=== PATIENT | female | born 1975 | race Caucasian/White ===

== ENCOUNTER → 2018-07-14 | Outpatient (CLI) | payer BC, OTHER ==
--- NOTE | 2018-07-15 11:21 | Diagnostic Imaging Report ---
INDICATION: Routine screening. COMPARISON: 01/30/2016 and 08/21/2012. TECHNIQUE: 2D and 3D bilateral screening mammography was performed with CAD. FINDINGS: Both breasts are heterogeneously dense, limiting the sensitivity of mammography. Innumerable microcalcifications are identified bilaterally. These may represent milk of calcium. No mass is identified. No malignant appearing microcalcifications are seen. The axillae are unremarkable. IMPRESSION: No mammographic features suspicious for malignancy are identified. ACR BI-RADS Category 2: Benign findings. Result letter will be mailed to the patient. Note: At least 10% of breast cancer is not imaged by mammography. Dictated by: Dictated on workstation # [id number]
== END ==
LOC: RAD 15:43
PROVIDERS: ATTEND Internal Medicine
DX: Z12.31 Encounter for screening mammogram for malignant neoplasm of breast (principal)
CPT/HCPCS: 77067

== ENCOUNTER → 2019-06-11 | Outpatient (CLI) | payer BC ==
--- NOTE | 2019-06-11 10:51 | Diagnostic Imaging Report ---
INDICATION: Pain and swelling to the right foot. Time of exam 10:43 AM The metatarsals appear to be intact. Phalanges are intact. Midfoot and hindfoot are unremarkable apart from a small plantar calcaneal spur. No fractures are seen. IMPRESSION: No acute bony abnormality is detected. Dictated by: Dictated on workstation # [id number]
--- NOTE | 2019-06-11 10:53 | Diagnostic Imaging Report ---
INDICATION: Pain and swelling to lateral right ankle. FINDINGS: 3 views. There are no fractures or dislocations. The joint surfaces are smooth. Joint spaces well-maintained. No soft tissue swelling. IMPRESSION: Normal right ankle. Dictated by: Dictated on workstation # [id number]
== END ==
LOC: RAD 10:25
PROVIDERS: ATTEND Internal Medicine
DX: M79.671 Pain in right foot (principal); M25.571 Pain in right ankle and joints of right foot
CPT/HCPCS: 73610; 73630

== ENCOUNTER 2019-08-26 08:07 | Outpatient (RCR) | payer BC | END 2019-08-26 10:19 | disposition home or self-care (01) | PROVIDERS: ATTEND Podiatrist | DX: S93.491A Sprain of other ligament of right ankle, initial encounter (principal); X50.1XXA Overexertion from prolonged static or awkward postures, initial encounter ==

== ENCOUNTER → 2020-11-09 | Outpatient (CLI) | payer BC ==
--- NOTE | 2020-11-09 17:04 | Diagnostic Imaging Report ---
INDICATION: Cough. EXAMINATION: PA and lateral views were obtained. FINDINGS: The heart size, mediastinal configuration, and pulmonary vascularity are within normal limits. There is no pleural effusion, pneumothorax or pneumonia. The osseous structures are unremarkable. IMPRESSION: No acute cardiopulmonary abnormality. Dictated by: Dictated on workstation # [id number]
== END ==
LOC: RAD 15:03
PROVIDERS: ATTEND Internal Medicine
DX: R05 Cough (principal)
CPT/HCPCS: 71046

== ENCOUNTER → 2020-11-16 | Outpatient (CLI) | payer BC ==
[~2020-11-16] MED LIST: RT-ALBUTEROL SULF 2.5 MG/3 ML PRE-MIX VIAL INH ONE
== END ==
LOC: RT 08:00
PROVIDERS: ATTEND Internal Medicine
DX: R06.00 Dyspnea, unspecified (principal)
CPT/HCPCS: 94060; 94726; 94729

== ENCOUNTER → 2021-01-12 | Outpatient (CLI) | payer BC ==
--- NOTE | 2021-01-12 16:05 | Diagnostic Imaging Report ---
INDICATION: Routine screening. COMPARISON is made with prior mammograms from 07/14/2018 and 01/30/2016. 2-D and 3-D bilateral screening mammography was performed with CAD. Both breasts are heterogeneously dense, limiting the sensitivity of mammography. Innumerable calcifications throughout both breasts are again noted, limiting evaluation. No discrete mass is identified. Axillae are unremarkable. IMPRESSION: BI-RADS Category 2 No mammographic features suspicious for malignancy are identified. ACR BI-RADS Category 2: Benign findings. Result letter will be mailed to the patient. Note: At least 10% of breast cancer is not imaged by mammography. Dictated by: Dictated on workstation # [id number]
== END ==
LOC: RAD 15:30
PROVIDERS: ATTEND Internal Medicine
DX: Z12.31 Encounter for screening mammogram for malignant neoplasm of breast (principal)
CPT/HCPCS: 77063; 77067

== ENCOUNTER → 2021-06-07 | Outpatient (CLI) | payer BC ==
--- NOTE | 2021-06-07 08:36 | Diagnostic Imaging Report ---
PROCEDURE: CT head without contrast. TECHNIQUE: Multiple contiguous axial images were obtained through the brain without the use of intravenous contrast. Auto Exposure Controls were utilized during the CT exam to meet ALARA standards for radiation dose reduction. INDICATION: Syncope, collapse, headache COMPARISON: None available FINDINGS: No intracranial hemorrhage. No intracranial mass, mass effect, midline shift, herniation, hydrocephalus, or extra-axial fluid collection. No CT evidence of an acute ischemic infarction. The orbits are unremarkable. The paranasal sinuses are clear. The calvarium and extracalvarial soft tissues are unremarkable. IMPRESSION: No acute intracranial abnormality. Dictated by: Dictated on workstation # [id number]
== END ==
LOC: CARD 07:29
PROVIDERS: ATTEND Internal Medicine
DX: R55 Syncope and collapse (principal); R51.9 Headache, unspecified
CPT/HCPCS: 70450; 93005

== ENCOUNTER → 2022-02-20 | Outpatient (CLI) | payer BC ==
--- NOTE | 2022-02-20 09:21 | Diagnostic Imaging Report ---
Indication: Routine screening. Comparison is made with prior mammogram from 01/12/2021 and 07/14/2018. 2-D and 3-D bilateral screening mammography was performed with CAD. CAD is utilized. The current study was also evaluated with a Computer Aided Detection (CAD) system. Both breasts are heterogeneously dense, limiting the sensitivity of mammography. Numerous microcalcifications throughout both breasts persists, limiting evaluation. No mass is identified. Overall parenchymal pattern appears to be stable. Axillae are unremarkable. IMPRESSION: BI-RADS Category 2 No mammographic features suspicious for malignancy are identified. ACR BI-RADS Category 2: Benign findings. Result letter will be mailed to the patient. Note: At least 10% of breast cancer is not imaged by mammography. Dictated by: Dictated on workstation # [id number]
== END ==
LOC: RAD 07:55
PROVIDERS: ATTEND Internal Medicine
DX: Z12.31 Encounter for screening mammogram for malignant neoplasm of breast (principal)
CPT/HCPCS: 77063; 77067

== ENCOUNTER 2022-02-27 05:50 | Outpatient (CLI) | payer BC ==
[~2022-02-27] VITALS: Ht 162.6 cm; Wt 84.8 kg
== END 2022-03-01 13:51 | disposition home or self-care (01) ==
LOC: PREOP 05:50
PROVIDERS: ATTEND Internal Medicine
DX: Z01.818 Encounter for other preprocedural examination (principal)

== ENCOUNTER 2022-03-08 07:13 | Day surgery (SDC) | payer BC ==
--- NOTE | 2022-02-26 06:44 | HISTORY AND PHYSICAL ---
DATE OF SERVICE: 03/08/2022 COLONOSCOPY HISTORY AND PHYSICAL HISTORY OF PRESENT ILLNESS: The patient is a 46-year-old white female referred for her first screening colonoscopy. She is deemed to have higher than average risk as her mother was recently diagnosed with colon cancer at the age of 79. She had a great uncle with colon cancer and has had some uncles with multiple colonic polyps, although not to the point that this apparently qualifies for polyposis syndrome that she is aware of. She denies abdominal pain, change in bowel habit, melena or bright red blood per rectum. PAST SURGICAL HISTORY: She had tonsillectomy and adenoidectomy as a child, had breast biopsy, benign in 2003. 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 REVIEW OF SYSTEMS: CONSTITUTIONAL: Denies night sweats, chills, fever or change in weight. PULMONARY: Denies cough, wheezing or shortness of breath. CARDIOVASCULAR: Denies orthopnea, PND, pedal edema, chest pain or syncope. GASTROINTESTINAL: As noted in the HPI. PHYSICAL EXAMINATION: GENERAL: Reveals a white female who appeared to be in no acute distress. HEENT: Unremarkable. Sclerae nonicteric. No evidence for pallor. CHEST: Clear to auscultation. CARDIOVASCULAR: Reveals a regular rate and rhythm without murmur, S3, or S4. ABDOMEN: Soft, supple without mass, organomegaly, or tenderness. EXTREMITIES: Reveal no cyanosis, clubbing or edema. ASSESSMENT AND PLAN: The patient is being set up for screening colonoscopy, deemed to be of higher than average risk concerning first-degree relative with colon cancer. The next case is her mother, diagnosed at the age of 79 as well as a great uncle and several other uncles that had reported multiple polyp removed. Thank you for the referral of this pleasant lady. Job ID: [id number] DocumentID: [id number] Dictated Date: 02/18/2022 15:54:00 Senior Climate Advisor Date: 02/18/2022 16:48:00 Dictated By: KAVYA BLACK MD
[~2022-03-08] VITALS: Ht 162.6 cm; Wt 84.8 kg
[2022-03-08] MEDS ORDERED: LACTATED RINGERS 1,000 ML IV STA (07:16)
[2022-03-08 07:39] VITALS: BP 126/76
--- NOTE | 2022-03-08 07:41 | Pre-Op Note & Conscious Sedat ---
Pre-Operative Progress Note Date H&P Reviewed: Mar 08, 2022 Time H&P Reviewed: 07:41 History & Physical: H&P Reviewed, Patient Examed, No changes noted Pre-Op Diagnosis: screening Conscious Sedation Pre-Proced ASA Score 2 For ASA 3 and 4: Consider anesthesia and medical clearance. Also, for patients with a history of failed moderate sedation consider anesthesia. Airway Lungs Heart ASA score ASA 1: a normal healthy patient ASA 2: a patient with a mild systemic disease (mid diabetes, controlled hypertension, obesity ASA 3: a patient with a severe systemic disease that limits activity (angina, COPD, prior Myocardial infarction) ASA 4: a patient with an incapacitating disease that is a constant threat to life (CHF, renal failure) ASA 5: a moribund patient not expected to survive 24 hrs. (ruptured aneurysm) ASA 6: a declared brain- patient whose organs are being harvested. For emergent operations, add the letter E after the classification Mallampati Classification Grade 2 Sedation Plan Analgesia, Amnesia, Plan communicated to team members, Discussed options with patient/fam, Discussed risks with patient/fam The patient is an appropriate candidate to undergo the planned procedure, sedation, and anesthesia. The patient immediately re-assessed prior to indication. KAVYA BLACK MD Mar 08, 2022 07:41
[2022-03-08] MEDS ORDERED: MIDAZOLAM 2 MG/2 ML (VERSED) VIAL ONE (08:01)
[2022-03-08] MEDS ORDERED: PROPOFOL INJECTION 50 ML IV ONE (08:14)
[2022-03-08 08:15] VITALS: BP 103/65
--- NOTE | 2022-03-08 08:17 | Progress Note-Post Operative ---
Post-Procedure Note Physician (s)/First Line Production Supervisor (s) Physician KAVYA BLACK MD Pre-Procedure Diagnosis Pre-Procedure Diagnosis: screening Post-Procedure Diagnosis Post-operative diagnosis: Prior to undergoing colonoscopy digital rectal evaluation was performed. Anal sphincter tone was normal and the perianal reflexes intact. No abnormalities are noted on digital inspection of the anal canal or distal rectal vault. The colonoscope was then inserted into the rectum and under direct visualization advanced to the cecum. The cecum was identified by identification of the ileocecal valve and the cecal strap. Photographic documentation was obtained. A careful inspection was made as the colonoscope was withdrawn. Quality the prep was good. Findings: There was no evidence for internal or external hemorrhoids. The rectum sigmoid colon descending colon transverse colon hepatic flexure ascending colon and cecum were unremarkable with no evidence for diverticular disease or neoplasia. Assessment: Normal colonoscopy to the cecum under good prep conditions. Considering strong family history would advocate repeat screening colonoscopy in 5 years. CC: KAVYA Joaquin MD Mar 08, 2022 08:17
[2022-03-08 08:20] VITALS: BP 110/60
[2022-03-08 08:25] VITALS: BP 133/72
[2022-03-08 08:50] VITALS: BP 133/72
--- NOTE | 2022-03-08 10:06 | Anesthesia-General Post-Op ---
MAC Patient Condition Mental Status/LOC: Same as Preop Cardiovascular: Satisfactory Nausea/Vomiting: Absent Respiratory: Satisfactory Pain: Controlled Complications: Absent Post Op Complications Complications None Follow Up Care/Instructions Patient Instructions None needed. Anesthesiology Discharge Order Discharge Order Patient was doing well this morning after the procedure with no complaints, stable vital signs, no apparent adverse anesthesia problems. No complications reported per nursing. HAM EPPERSON DO Mar 08, 2022 10:06
== END 2022-03-08 09:15 | disposition home or self-care (01) ==
LOC: ENDO 07:13
PROVIDERS: ATTEND Internal Medicine
DX: Z12.11 Encounter for screening for malignant neoplasm of colon (principal); Z80.0 Family history of malignant neoplasm of digestive organs; Z83.71 Family history of colonic polyps; Z86.16 Personal history of COVID-19